=== PATIENT | male | born 1975 | race Caucasian/White ===

== ENCOUNTER 2016-12-25 04:03 | Inpatient (IN) | payer OTHER ==
[~2016-12-25] VITALS: Ht 170.1 cm; Wt 62.9 kg
[2016-12-25 04:16] VITALS: BP 133/77
[2016-12-25 04:37] LABS: BASO # 0.1 10*3/uL (0.0-0.1); BASO % 0.8 % (0.0-1.0); EOS # 0.3 10*3/uL (0.0-0.4); EOS % 3.7 % (1.0-4.0); HEMATOCRIT 34.7 % (42.0-52.0); HEMOGLOBIN 11.6 g/dl (14.0-18.0); LYMPH # 3.2 10*3/uL (1.3-4.4); LYMPH % 38.6 % (27.0-41.0); MEAN CELL VOLUME 94.3 fl (80.0-94.0); MEAN CORPUSCULAR HGB 31.5 pg (27.0-31.0); MEAN CORPUSCULAR HGB CONC 33.4 g/dl (33.0-37.0); MEAN PLATELET VOLUME 9.8 fl (9.6-12.3); MONO # 0.9 10*3/uL (0.1-1.0); MONO % 10.8 % (3.0-9.0); NEUT # 3.8 10*3/uL (2.3-7.9); NEUT % 45.9 % (47.0-73.0); PLATELET COUNT AUTOMATED 325 10*3/uL (130-400); RED BLOOD COUNT 3.68 10*6/uL (4.50-5.90); RED CELL DISTRI WIDTH 12.7 % (0-14.5); WHITE BLOOD COUNT 8.4 10*3/uL (4.8-10.8)
[2016-12-25 04:40] LABS: BILIRUBIN NEGATIVE (NEGATIVE); BLOOD NEGATIVE (NEGATIVE); CLARITY CLEAR (CLEAR); COLOR YELLOW (YELLOW); GLUCOSE NEGATIVE (NEGATIVE); KETONE TRACE (NEGATIVE); LEUKO ESTERASE NEGATIVE (NEGATIVE); NITRITE NEGATIVE (NEGATIVE); PROTEIN NEGATIVE (NEGATIVE); SPECIFIC GRAVITY 1.025 (1.005-1.030)
[2016-12-25 04:47] LABS: BACTERIA TRACE; EPITHELIAL CELLS 0-2; URINE REFLEX COMMENT NO (NO); WBC 0-2 wbc/hpf (0-5)
[2016-12-25 04:52] LABS: ALBUMIN 3.8 gm/dl (3.1-4.5); ALKALINE PHOSPHATASE 85 U/L (45-117); BILIRUBIN, TOTAL 0.3 mg/dl (0.2-1.0); BUN 16 mg/dl (7-24); CARBON DIOXIDE 31 mmol/L (21-32); CHLORIDE 107 mmol/L (98-107); EST GLOM FILT AFRICAN AMERICAN > 60 ml/min; GLUCOSE 88 mg/dL (65-99); SGOT/AST 17 IU/L (3-35); SGPT/ALT 23 U/L (12-78); SODIUM 146 mmol/L (136-145); TOTAL PROTEIN 6.6 gm/dL (6.4-8.2)
[2016-12-25 04:56] LABS: URINE AMPHETAMINES < 1000 (1000ng/ml); URINE BARBITURATES < 200 (200ng/ml); URINE COCAINE > 300 (300ng/ml)
[2016-12-25 08:17] VITALS: BP 136/82
[2016-12-25 08:38] VITALS: BP 122/81
[2016-12-25 16:00] VITALS: BP 110/68
[2016-12-25 20:00] VITALS: BP 117/65
[2016-12-26] VITALS: BP 100/51
[2016-12-26 04:00] VITALS: BP 102/55
[2016-12-26 08:00] VITALS: BP 110/56
[2016-12-26 12:00] VITALS: BP 112/66
[2016-12-26 16:00] VITALS: BP 139/68
[2016-12-26 20:00] VITALS: BP 108/59
[2016-12-27] VITALS: BP 97/54
[2016-12-27 08:00] VITALS: BP 96/59
[2016-12-27 12:00] VITALS: BP 103/59
[2016-12-27 16:00] VITALS: BP 101/53
[2016-12-27 20:00] VITALS: BP 110/79
[2016-12-28] VITALS: BP 89/48
[2016-12-28 00:10] VITALS: BP 90/48
[2016-12-28 04:00] VITALS: BP 108/54
[2016-12-28 08:00] VITALS: BP 103/58
[2016-12-28] MEDS ORDERED: ATARAX,VISTARIL50 MG PO (08:48)
[2016-12-28] MEDS ORDERED: DICYCLOMINE HCL20 MG PO (08:48)
== END 2016-12-28 09:00 | disposition home or self-care (01) | DRG 897 ==
LOC: ED 04:03 → 4E 06:45 → EDHOLD 06:45 → 4E 06:51
PROVIDERS: Family Medicine Sports Medicine
DX: F11.23 Opioid dependence with withdrawal (principal); R00.1 Bradycardia, unspecified; F13.239 Sedative, hypnotic or anxiolytic dependence with withdrawal, unspecified; F41.9 Anxiety disorder, unspecified; M79.1 Myalgia; F17.210 Nicotine dependence, cigarettes, uncomplicated; F14.10 Cocaine abuse, uncomplicated; F12.10 Cannabis abuse, uncomplicated; Z83.79 Family history of other diseases of the digestive system; Z71.6 Tobacco abuse counseling